=== PATIENT | male | born 1980 | race American Indian/Alaskan Native ===

== ENCOUNTER 2019-12-22 17:52 | Emergency (ER) | payer SELFPAY ==
[2019-12-22 18:17] VITALS: BP 135/97
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
== END 2019-12-22 18:32 | disposition left against medical advice (07) ==
LOC: ED 17:52
DX: R07.89 Other chest pain (principal); Z53.21 Procedure and treatment not carried out due to patient leaving prior to being seen by health care provider

== ENCOUNTER 2019-12-23 01:34 | Emergency (ER) | payer SELFPAY ==
[2019-12-23 01:58] VITALS: BP 163/96
[2019-12-23] MEDS ORDERED: DIPHtheria,PERTUSSIS(ACELL),TETANUS VACCINE/PF 0.5 ML VIAL IM ONE (07:37)
[2019-12-23] MEDS ORDERED: LIDOCAINE (1%) 10 MG/1 ML VIAL 20 ML MDV INFILTRATI ONE (07:37)
[2019-12-23] MEDS ORDERED: ACETAMINOPHEN 500 MG TAB PO ONE (07:37)
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
[2019-12-23] MEDS ORDERED: NEOMY 3.5 MG/BACIT 400 UNITS/POLY B 5000 UNITS/GM OINT PACKET TP ONE ×2 (09:55→09:56)
[2019-12-23] MEDS ORDERED: BACITRACIN/POLYMYXIN B OINT 28.35 GM TP ONE (10:00)
== END 2019-12-23 10:07 | disposition home or self-care (01) ==
LOC: ED 01:34
DX: S16.1XXA Strain of muscle, fascia and tendon at neck level, initial encounter (principal); S01.81XA Laceration without foreign body of other part of head, initial encounter; S02.2XXA Fracture of nasal bones, initial encounter for closed fracture; S02.19XA Other fracture of base of skull, initial encounter for closed fracture; S09.90XA Unspecified injury of head, initial encounter; J45.909 Unspecified asthma, uncomplicated; F17.200 Nicotine dependence, unspecified, uncomplicated; F12.10 Cannabis abuse, uncomplicated; F14.10 Cocaine abuse, uncomplicated; Z79.2 Long term (current) use of antibiotics; Z79.899 Other long term (current) drug therapy; Y04.2XXA Assault by strike against or bumped into by another person, initial encounter; Y93.89 Activity, other specified; Y92.89 Other specified places as the place of occurrence of the external cause; Y99.8 Other external cause status
CPT/HCPCS: 12013; 70450; 70486; 72125; 73030; 90471; 90715; 99284; A6250